=== PATIENT | male | born 1945 | race Caucasian/White ===

== ENCOUNTER 2018-12-29 07:02 | Day surgery (SDC) | payer MEDICARE ==
[~2018-12-29] VITALS: Ht 172.7 cm; Wt 122.9 kg
[~2018-12-29 07:02] MED LIST: ADV250INH INH; ATEN25TA PO; CIPR-249 PO; CO Q10CA PO; FLOM0.4C39 PO; GLIP10TA6 PO; HYDR-3713 PO; KP F1200 PO; LEVE1INJ5 SC; LOSA100T50 PO; METF-839 PO; MULTCAP PO; ROSU5TAB5 PO; VENTAER INH
[2018-12-29] MEDS ORDERED: CIPROFLOXACIN 400 MG in APPROPRIATE DILUENT 1 EA IV ONE (07:15)
[2018-12-29] MEDS ORDERED: LR 1,000 ML IV ONE (07:15)
[2018-12-29] MEDS ORDERED: ROCURONIUM BROMIDE 50 MG/5 ML VIAL As Ordered ONE (08:09)
[2018-12-29] MEDS ORDERED: LIDOCAINE 2% INJ 100 MG/5 ML SDV (FOR ANES.) As Ordered ONE ×2 (08:09→08:57)
[2018-12-29] MEDS ORDERED: dexameTHASONE 4 MG/ML 1ML VIAL (J1100) As Ordered ONE (08:09)
[2018-12-29] MEDS ORDERED: PROPOFOL 200 MG/20 ML VIAL As Ordered ONE (08:09)
[2018-12-29] MEDS ORDERED: ONDANSETRON 4MG/2ML VIAL (J2405) As Ordered ONE (08:09)
[2018-12-29] MEDS ORDERED: MIDAZOLAM INJ 2 MG/2 ML VIAL (J2250) As Ordered ONE (08:10)
[2018-12-29] MEDS ORDERED: fentaNYL 100 MCG/2 ML INJECTION (J3010) As Ordered ONE (08:10)
[2018-12-29] MEDS ORDERED: SUGAMMADEX SODIUM 500 MG/5 ML VIAL (BRIDION) As Ordered ONE (08:57)
[2018-12-29] MEDS ORDERED: ePHEDrine SULFATE 25 MG/5 ML(5MG/ML) SYRINGE As Ordered ONE (08:59)
[2018-12-29] MEDS ORDERED: PHENYLephrine HCL 500 MCG/5 ML (100MCG/ML) SYRINGE (J2370) As Ordered ONE (08:59)
[2018-12-29] MEDS ORDERED: fentaNYL 100 MCG/2 ML INJECTION (J3010) IV PRN (09:45)
[2018-12-29] MEDS ORDERED: METOCLOPRAMIDE INJ 10MG/2ML VIAL (J2765) IV PRN (09:45)
[2018-12-29] MEDS ORDERED: LR 1,000 ML IV SCH (09:45)
[2018-12-29] MEDS ORDERED: PERCOCET 5MG/325MG TAB PO PRN (09:45)
[2018-12-29] MEDS ORDERED: ONDANSETRON 4MG/2ML VIAL (J2405) IV PRN (09:45)
--- NOTE | 2018-12-29 10:12 | ECGEPIP ---
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
[2018-12-29 10:30] VITALS: BP 138/98
== END 2018-12-29 11:11 | disposition home or self-care (01) ==
LOC: M SDC 07:02
PROVIDERS: ATTEND Urology
DX: R31.0 Gross hematuria (principal); I10 Essential (primary) hypertension; E10.9 Type 1 diabetes mellitus without complications; Z79.4 Long term (current) use of insulin; Z79.84 Long term (current) use of oral hypoglycemic drugs; J44.9 Chronic obstructive pulmonary disease, unspecified; E66.9 Obesity, unspecified; Z79.899 Other long term (current) drug therapy; Z87.891 Personal history of nicotine dependence
CPT/HCPCS: 52001; 93005; J0744; J1100; J2250; J2370; J2405; J3010

== ENCOUNTER → 2019-01-18 | Outpatient (CLI) | payer MEDICARE ==
[~2019-01-18] MED LIST changes: +ISOVUE-370 76% 100ML VIAL (Q9967) As Ordered ONE
--- NOTE | 2019-01-18 15:18 | REP ---
Clinical: Hematuria. Technique: Precontrast, contrast enhanced, and delayed images of the abdomen and pelvis using 100 ml Isovue 370 intravenous contrast material with multiplanar re-formations. Findings: Moderate symmetric chronic-appearing perinephric stranding is appreciated bilaterally two 1 mm nonobstructing right renal calculi identified in the lower pole. No hydroureteronephrosis or obstructing ureteral calculi appreciated. The bladder demonstrates mild wall thickening which may reflect chronic changes due to mild outlet obstruction by prominent prostate gland measuring approximately 7.1 x 5.5 x 5.3 cm. Delayed images demonstrate a 1.2 cm right lower pole renal cyst, 2.5 cm left posterior cortical cyst, and few bilateral subcentimeter cysts. Liver, spleen, pancreas, and bilateral adrenal glands are normal. Evidence of prior cholecystectomy. The enteric system is without obstruction or acute inflammatory process. Colonic and sigmoid diverticulosis noted without acute diverticulitis. Normal terminal ileum and appendix identified in the right lower quadrant. Early fat containing inguinal hernias identified. No ascites. No free air. No adenopathy. Atherosclerotic changes to the aorta and vasculature without aneurysm. Musculoskeletal structures demonstrate degenerative changes. Lung bases are clear. Impression: 1. Few 1 mm nonobstructing right renal calculi along with few scattered bilateral renal cysts and moderate symmetric chronic perinephric stranding noted. Bladder demonstrates mild wall thickening which may be secondary to chronic outlet obstruction secondary to enlarged prostate gland. 2. Sigmoid diverticula without acute diverticulitis. 3. Atherosclerotic changes to the vasculature and degenerative changes the musculoskeletal structures. Electronically Signed by Pj Ornelas MD 01/18/2019 03:10 P
== END ==
LOC: M RAD 13:34
PROVIDERS: ATTEND Nurse Practitioner Family
DX: R31.9 Hematuria, unspecified (principal)
CPT/HCPCS: 74178; Q9967